=== PATIENT | male | born 1965 | race Caucasian/White ===

== ENCOUNTER → 2018-04-11 09:07 | Outpatient (CLI) | payer OTHER, SELFPAY ==
[2018-04-11 12:16] LABS: Absolute Lymphocyte Count 0.75 X10^3/ul (0.83-4.51); Absolute Neutrophil Count 2.4 X10^3/uL (2.0-7.7); Basophil# 0.06 X10^3/uL; Basophil% 1.5 % (0-1); Eosinophil# 0.27 X10^3/uL; Eosinophils% 6.6 % (0-5); Hematocrit 30.6 % (40-54); Hemoglobin 8.7 g/dl (13.0-16.5); Lymphocyte # 0.75 X10^3/ul (4.0); Lymphocyte % 18.4 % (19-41); Mean Corp Hgb Conc 28.4 g/gl (32-36); Mean Corpuscular Hgb 20.6 pg (27.0-32.0); Mean Corpuscular Volume 72.3 fL (80-94); Mean Platelet Vol. 9.8 fl (6.2-12.0); Monocyte# 0.55 X10^3/uL; Monocyte% 13.5 % (0-10); Neutrophil # 2.43 X10^3/uL (2.7-7.7); Neutrophil % 59.8 % (47-70); Platelet Count 224 K/mm3 (150-450); RBC Distribution Width CV 16.1 % (11.6-14.6); RBC Distribution Width SD 42.6 fl (35.1-43.9); Red Blood Count 4.23 M/mm3 (4.6-6.2); White Blood Count 4.1 K/mm3 (4.4-11.0)
[2018-04-11 12:17] LABS: POSITIVE COUNT NO; POSITIVE DIFFERENTIAL NO; POSITIVE MORPHOLOGY YES
[2018-04-11 12:18] LABS: Differential Indicated SCAN CRITERIA MET
[2018-04-11 12:33] LABS: Anisocytosis 1+; Hypochromasia 2+
[2018-04-11 12:34] LABS: Polychromasia RARE; Target Cells RARE
[2018-04-11 12:40] LABS: ALB/GLOB Ratio 1.2 RATIO (0.9-2.4); AST(SGOT) 18 U/L (15-37); Alanine Aminotransfer ALT/SGPT 24 U/L (16-61); Albumin, Serum 3.9 g/dL (3.2-5.0); Alkaline Phosphatase 75 U/L (45-117); Anion Gap 8 (5-15); BUN 15 mg/dL (7-18); BUN/Creat Ratio 16.1 RATIO (10-20); Calcium,Total 8.1 mg/dL (8.5-10.1); Chloride 107 mmol/L (98-107); Cholesterol 124 mg/dL (200); Creatinine, Serum 0.93 mg/dL (0.70-1.30); EST Glomerular Filtration Rate 90 mL/min (>60); Est Glom Filt Rate - Afr Amer 108 mL/min (>60); Globulin 3.2 g/dL (2.2-4.2); Glucose 88 mg/dL (74-106); High Density Lipoprotein 35 mg/dL; Potassium 4.4 mmol/L (3.5-5.1); Protein, Total 7.1 g/dL (6.4-8.2); Sodium Level 139 mmol/L (136-145); Triglycerides 66 mg/dL; Very Low Density Lipoprotein 13 mg/dL (5-40)
== END ==
PROVIDERS: Family Provider Family Medicine; PCP Family Medicine; Referring Provider Family Medicine; Visit Provider Family Medicine
DX: Z00.00 Encounter for general adult medical examination without abnormal findings (principal)
CPT/HCPCS: 36415; 80053; 80061; 85025

== ENCOUNTER → 2018-04-25 07:44 | Outpatient (CLI) | payer OTHER, SELFPAY ==
--- NOTE | 2018-04-25 07:50 | CT_ITS ---
STUDY: CT ABDOMEN WITH CONTRAST REASON FOR EXAM: Male, 52 years old. Follow-up kidney mass. RADIATION DOSAGE (If Supplied By Facility): CTDIvol = ( 17.95 ) mGy, DLP = ( 1973.83 ) mGycm TECHNIQUE: Transaxial images were obtained post I.V. administration of Isovue 300 100CC IV, and oral contrast. Sagittal and coronal images were reconstructed. Individualized dose optimization techniques were used for this CT. COMPARISON: CT of the abdomen and pelvis, July 20, 2016. FINDINGS: There are multiple coli versus air cells in both lung bases. There is no mass or consolidation. The visualized portions of the heart are within normal limits. Normal liver. Normal gallbladder and extrahepatic biliary system. Normal spleen. Normal pancreas. Normal bilateral adrenal glands. There is a small mass along the lateral aspect of the mid kidney extending into the hepatorenal fossa. This measures approximately 1.1 x 1.0 x 1.0 cm. This demonstrates enhancement similar to the renal cortex. No other masses are seen. There is simple cyst lower pole but otherwise normal left kidney. Question small type I hiatal hernia. The stomach is otherwise unremarkable. Normal small intestine. There is sigmoid diverticulosis without acute inflammatory change. The appendix is visualized and appears normal. Normal abdominal aorta. Normal inferior vena cava. Normal retroperitoneum. Umbilical hernia of omental fat. There is evidence of bilateral inguinal herniorrhaphies. There is straightening of the lumbar lordosis with degenerative changes of the lumbar spine. CT/Abdomen WITH IV Contrast IMPRESSION: 1. Small soft tissue mass in the lateral right kidney. This appears essentially unchanged in size from the previous examination. 2. Stable left renal cyst. 3. Resolution of the diffuse colitis seen on the previous study. 4. No other major interval change Electronically Signed: Jose Rosario DO at 19:03 EST Tel [phone], Service support ,
== END ==
PROVIDERS: Family Provider Family Medicine; PCP Family Medicine; Referring Provider Family Medicine; Visit Provider Family Medicine
DX: N28.89 Other specified disorders of kidney and ureter (principal)
CPT/HCPCS: 74160

== ENCOUNTER → 2019-06-10 11:21 | Outpatient (CLI) | payer OTHER, SELFPAY ==
[2016-08-10 13:48] VITALS: BMI 25.0
[2019-06-10 15:22] LABS: Absolute Lymphocyte Count 0.61 X10^3/uL (0.83-4.51); Absolute Neutrophil Count 2.6 X10^3/uL (2.0-7.7); Basophil# 0.08 X10^3/uL; Basophil% 1.9 % (0-1); Eosinophil# 0.29 X10^3/uL; Eosinophils% 6.7 % (0-5); Hematocrit 29.2 % (40-54); Hemoglobin 7.9 g/dL (13.0-16.5); Lymphocyte # 0.61 X10^3/ul (4.0); Lymphocyte % 14.2 % (19-41); Mean Corp Hgb Conc 27.1 g/dL (32-36); Mean Corpuscular Hgb 18.7 pg (27.0-32.0); Mean Platelet Vol. 10.8 fl (6.2-12.0); Monocyte# 0.67 X10^3/uL; Monocyte% 15.5 % (0-10); NRBC Flagged by Analyzer 0 % (0-5); Neutrophil # 2.64 X10^3/uL (2.7-7.7); Neutrophil % 61.2 % (47-70); Platelet Count 263 K/mm3 (150-450); RBC Distribution Width CV 17.8 % (11.6-14.6); RBC Distribution Width SD 43.3 fl (35.1-43.9); Red Blood Count 4.23 M/mm3 (4.6-6.2); White Blood Count 4.3 K/mm3 (4.4-11.0)
[2019-06-10 15:35] LABS: Vitamin D,25 Hydroxy 32.4 ng/mL
[2019-06-10 15:41] LABS: Anion Gap 7 (5-15); BUN 13 mg/dL (7-18); BUN/Creat Ratio 14.1 RATIO (10-20); Calcium,Total 8.4 mg/dL (8.5-10.1); Chloride 104 mmol/L (98-107); Cholesterol 137 mg/dL (200); Creatinine, Serum 0.92 mg/dL (0.70-1.30); EST Glomerular Filtration Rate 90 mL/min (>60); Est Glom Filt Rate - Afr Amer 109 mL/min (>60); Glucose 84 mg/dL (74-106); High Density Lipoprotein 41 mg/dL; Sodium Level 136 mmol/L (136-145); Triglycerides 85 mg/dL; Very Low Density Lipoprotein 17 mg/dL (5-40)
== END ==
PROVIDERS: PCP Family Medicine; Referring Provider Family Medicine; Visit Provider Family Medicine
DX: Z00.00 Encounter for general adult medical examination without abnormal findings (principal); D64.9 Anemia, unspecified
CPT/HCPCS: 36415; 80048; 80061; 82306; 85025

== ENCOUNTER → 2020-01-21 16:00 | Outpatient (CLI) | payer OTHER, SELFPAY ==
[2016-08-10 13:48] VITALS: BMI 25.0
== END ==
PROVIDERS: PCP Family Medicine; Referring Provider Family Medicine; Visit Provider Family Medicine
DX: Z20.828 Contact with and (suspected) exposure to other viral communicable diseases (principal)
CPT/HCPCS: 87635; U0003

== ENCOUNTER 2020-10-22 07:37 | Emergency (ER) | payer OTHER, SELFPAY ==
[2020-10-22 07:38] VITALS: BP 174/90; PULSE 80; RESP 14; TEMP 36.4; O2SAT 99; BMI 29.5
--- NOTE | 2020-10-22 07:51 | EX.ED.VIS.EY ---
HPI History of Present Illness Chief Complaint: Eye Problem Informant: patient Narrative Narrative: Patient is a 55-year-old male with a past medical history of COPD who presents to the emergency department for right eye pain. He states that initially started yesterday when he felt he had a film on his eye. For like he had a difficult time keeping his contact in. He woke up earlier this morning and started to have pain. He currently rates the pain as a 6 or 7 out of 10. He does have a foreign body sensation in the right eye. He denies any significant headache or neck stiffness. No fevers or chills. No nausea or vomiting. No ear pain or ringing. He states that his nose has started to run but blames it on his eye. He has never had issues with this before in the past. Denies any vision change. He is sensitive to bright lights. [facility] Medical History (Updated 10/22/20 @ 08:[address] Home Feng DO) COPD (chronic obstructive pulmonary disease) Home Medications levofloxacin See Rx Instructions .ROUTE .COMPLEX #5 ml 10/22/20 [Rx Last Taken Unknown] Allergy/AdvReac Type Severity Reaction Status Date / Time Penicillins Allergy Rash Verified 10/22/20 07:38 Social History Smoking Status: Never smoker ROS ROS ED Constitutional Constitutional ED: Denies chills or fever(s) Eyes Eyes: Reports other Details: Right eye pain, watering ; Denies change in vision ENT ENT ED: Denies epistaxis or rhinorrhea Cardiovascular Cardiovascular: Denies chest pain or palpitations Respiratory/Chest Respiratory/Chest: Denies cough or dyspnea Gastrointestinal Gastrointestinal: Denies abdominal pain, nausea or vomiting Musculoskeletal Musculoskeletal: Denies back pain or neck pain Integumentary Denies rash Neurologic Neurologic: Denies dizziness, headache(s) or weakness EXAM Physical Exam Const Vital Signs: 10/22/20 07:38 Temperature 97.6 F L Temperature Source Temporal Pulse Rate 80 Respiratory Rate 14 Blood Pressure 174/90 H Blood Pressure Mean 118 Pulse Ox 99 Oxygen Delivery Method Room Air Positive well nourished and well developed General Appearance ED: well developed and NAD HEENT Reports normocephalic, head/scalp atraumatic and moist mucous membranes Eyes PERRL and EOMs intact bilaterally Eyes Narrative: Right eye appears injected, mildly swollen and watering. No purulent discharge. No obvious foreign body appreciated on external exam. No proptosis. PERRLA. EOMI. fluorescein exam did reveal a corneal abrasion just over the anterior aspect of the pupil. No foreign body appreciated. Neck supple Resp normal respiratory effort and clear to auscultation bilaterally Auscultation: Negative for rales, rhonchi or wheezes Cardio regular rate, regular rhythm and no murmurs Extremity normal to inspection Neuro CN's II-XII intact bilaterally and no sensory deficits noted Sensorium / Orientation: alert Motor Exam: strength 5/5 throughout Psych mental status grossly normal Skin no rashes or lesions noted MDM MDM MDM Narrative Medical decision making narrative: Patient presents to the emergency department for right eye pain, foreign body sensation watering. On arrival to the ED he is hypertensive but otherwise normal vital signs. He is in no acute distress. Tetracaine is instilled in the right eye and a fluorescein exam is obtained. Patient's fluorescein exam was consistent with corneal abrasion. He is advised not to wear his contacts anymore until cleared by ophthalmology. He is given a prescription for Levaquin eyedrops. Return precautions are reviewed with him. He otherwise is given a referral for ophthalmology. He understands and is agreeable with this plan. All questions answered. Discharge Plan Triage Chief Complaint: Eye Problem ED Provider: Home Feng Dx/Rx/DC Orders Clinical Impression: Abrasion, corneal Instructions: ED Corneal Abrasion Prescriptions: New levofloxacin 0.5 % drops See Rx Instructions .ROUTE .COMPLEX Qty: 5 RF: 0 Primary Care Provider: Romulo Valenzuela Referrals: Hossein Choi MD [STAFF PHYSICIAN] - 1 Day Romulo Valenzuela MD [Primary Care Provider] - Disposition Disposition: Home, Self Care Discharge Date/Time: 10/22/20 08:30
[2020-10-22] MEDS: Tetracaine 0.5% Ophthalmic Bottle 1 DRP RIGHT EYE (08:11)
[2020-10-22] MEDS: Fluorescein 1 MG STRIP 1 STRIP RIGHT EYE (08:11)
--- NOTE | 2020-10-22 08:29 | ED.RN ---
PER DR. LUTZ, VISUAL ACUITY NOT INDICATED.
== END 2020-10-22 08:30 | disposition home or self-care (01) ==
LOC: ED 08:13
PROVIDERS: Emergency Provider Emergency Medicine; PCP Family Medicine
DX: S05.01XA Injury of conjunctiva and corneal abrasion without foreign body, right eye, initial encounter (principal); X58.XXXA Exposure to other specified factors, initial encounter; Y93.89 Activity, other specified; Y92.9 Unspecified place or not applicable; Y99.9 Unspecified external cause status; J44.9 Chronic obstructive pulmonary disease, unspecified
CPT/HCPCS: 99282

== ENCOUNTER → 2021-01-30 16:51 | Outpatient (CLI) | payer OTHER, SELFPAY | PROVIDERS: PCP Family Medicine; Visit Provider Family Medicine | DX: Z20.822 Contact with and (suspected) exposure to COVID-19 (principal) | CPT/HCPCS: 87635; U0005; U0003 ==

== ENCOUNTER → 2021-07-04 | Outpatient (CLI) | payer OTHER, SELFPAY | END | disposition home or self-care (01) | LOC: LABSPEC 18:14 | PROVIDERS: PCP Family Medicine; Visit Provider Registered Nurse | DX: J06.9 Acute upper respiratory infection, unspecified (principal); Z20.822 Contact with and (suspected) exposure to COVID-19 | CPT/HCPCS: 87635; U0003; U0005 ==

== ENCOUNTER → 2024-09-30 | Outpatient (CLI) | payer OTHER, SELFPAY ==
[2024-09-30 12:35] LABS: AST(SGOT) 29 U/L (<=37); Alanine Aminotransfer ALT/SGPT 23 U/L (<=46); Albumin, Serum 4.3 g/dL (3.4-4.8); Alkaline Phosphatase 80 U/L (40-129); Anion Gap 11 (5-15); BUN 13 mg/dL (4-19); BUN/Creat Ratio 15.2 RATIO (10-20); Calcium,Total 9.1 mg/dL (7.6-11.0); Carbon Dioxide 25.0 mmol/L (21.0-32.0); Chloride 105 mmol/L (98-108); Cholesterol 187 mg/dL (<=200); Globulin 2.8 g/dL (2.2-4.2); Glucose 99 mg/dL (70-99); Low Density Lipoprotein Calc. 117 mg/dL; PSA,Total - Annual Screen 3.04 ng/mL (0.02-4.00); Potassium 4.5 mmol/L (3.3-5.1); Triglycerides 109 mg/dL; Very Low Density Lipoprotein 22 mg/dL (5-40); cholesterol:hdl ratio screen 3.85
== END | disposition home or self-care (01) ==
LOC: MFPLAB 10:00
PROVIDERS: PCP Family Medicine; Referring Provider Family Medicine; Visit Provider Family Medicine
DX: Z00.00 Encounter for general adult medical examination without abnormal findings (principal); Z12.5 Encounter for screening for malignant neoplasm of prostate
CPT/HCPCS: 36415; 80053; 80061; 84153; G0103

== ENCOUNTER → 2024-11-23 | Outpatient (CLI) | payer OTHER, SELFPAY ==
--- NOTE | 2024-11-23 12:48 | US_ITS ---
PROCEDURE: KIDNEY AND BLADDER 11/23/2024 REASON FOR EXAM: KIDNEY MASS- RIGHT TECHNIQUE: Procedure Code: USKI Modality: US Procedure: KIDNEY AND BLADDER COMPARISON: Prior CT scan of the abdomen and pelvis dated April 25, 2018. FINDINGS: Kidneys: There is a 1.9 cm 1.1 cm 1.8 cm exophytic hypoechoic soft tissue density with increased vascularity. A neoplastic process should be ruled out. [place]: No evidence of hydronephrosis. Small bilateral nonobstructive intrarenal calculi. 2.4 cm 2.2 cm 2.5 cm cyst in the inferior pole of the left kidney. RIGHT Kidney Size: 12.3 cm x 6.6 cm x 4.9 cm Cortical Thickness (if discernible): 12 mm (>6mm is normal) LEFT Kidney Size: 12.4 cm x 6.1 cm x 6.5 cm Cortical Thickness (if discernible): 17 mm (>6mm is normal) The urinary bladder is unremarkable. US/Kidney and Bladder IMPRESSION: 1.9 cm 1.1 cm 1.8 cm exophytic hypoechoic nodular density in the upper pole of the right kidney with vascularity. A neoplastic process should be ruled out. 2.4 cm x 2.2 cm 2.5 cm cyst in the lower pole of the left kidney. Small bilateral nonobstructive intrarenal calculi. Reading Location: [place] [id number]
== END | disposition home or self-care (01) ==
PROVIDERS: PCP Family Medicine; Referring Provider Family Medicine; Visit Provider Family Medicine
DX: N28.89 Other specified disorders of kidney and ureter (principal)
CPT/HCPCS: 76770